=== PATIENT | female | born 1990 | race Caucasian/White ===

== ENCOUNTER 2020-05-14 15:01 | Emergency (ER) | payer BC, OTHER ==
[~2020-05-14] VITALS: Ht 165.1 cm; Wt 65.8 kg
[2020-05-14 15:05] VITALS: BP_SYST 149
--- NOTE | 2020-05-14 15:05 | NUR ---
Patient to ER bed 1 to gown for evaluation. Side rails up. Report given to Jose.
--- NOTE | 2020-05-14 15:10 | NUR ---
PT AAO AND AMBULATORY 2 MONTHS AND HAVING SPOTTING THAT STARTED THIS MORNING. PT DENIES ANY OTHER S/S.
--- NOTE | 2020-05-14 15:20 | NUR ---
ER at bedside examining patient.
[2020-05-14 15:53] LABS: BASOPHILS % (AUTO) 0.3 % (0.0-2.0); EOSINOPHILS # (AUTO) 0.1 K/uL (0.0-0.4); EOSINOPHILS % (AUTO) 1.2 % (0.0-4.0); HEMATOCRIT 40.9 % (36-48); HEMOGLOBIN 13.6 g/dL (12.0-16.0); LYMPHOCYTES # (AUTO) 1.7 K/uL (1.0-5.5); LYMPHOCYTES % (AUTO) 17.2 % (20.5-51.5); MEAN CORPUSCULAR HEMOGLOBIN 29 pg (27-31); MEAN CORPUSCULAR HGB CONC 33 % (32-36); MEAN CORPUSCULAR VOLUME 88 fL (79.0-98.0); MONOCYTES # (AUTO) 0.6 K/uL (0.0-1.0); MONOCYTES % (AUTO) 5.5 % (1.7-9.3); NEUTROPHILS # (AUTO) 7.7 K/uL (1.8-7.7); NEUTROPHILS % (AUTO) 75.8 % (40.0-70.0); PLATELET COUNT (AUTO) 299 K/uL (130-430); RED BLOOD CELL COUNT(AUTO) 4.64 MIL/uL (4.2-6.2); RED CELL DISTRIBUTION WIDTH 12.9 % (9.0-15.0); WHITE BLOOD COUNT (AUTO) 10.1 K/uL (4.8-10.8)
[2020-05-14 15:56] LABS: CALCIUM 9.7 mg/dL (8.4-11.0); CREATININE 0.68 mg/dL (0.55-1.30); POTASSIUM 4.2 mmol/L (3.5-5.1)
--- NOTE | 2020-05-14 16:04 | NUR ---
Pt resting comfortably in [facility] no distress
--- NOTE | 2020-05-14 17:39 | NUR ---
pt has no c/o at this time
--- NOTE | 2020-05-14 17:45 | NUR ---
Patient given written and verbal discharge instructions and verbalizes understanding. ER MD discussed with patient the results and treatment provided. Patient in stable condition. ID arm band removed. No prescriptions given. Patient educated on pain management and to follow up with PMD. Pain Scale 0. Opportunity for questions provided and answered. Medication side effect fact sheet provided.
[2020-05-14 17:47] VITALS: BP_SYST 135
== END 2020-05-14 17:45 | disposition home or self-care (01) ==
LOC: SED 15:01
DX: O20.0 Threatened abortion (principal); O20.9 Hemorrhage in early pregnancy, unspecified; Z3A.01 Less than 8 weeks gestation of pregnancy
CPT/HCPCS: 36415; 76801; 76817; 80048; 81002; 84702-TC; 85025; 86886; 86900; 86901; 99284

== ENCOUNTER 2020-05-15 02:02 | Emergency (ER) | payer BC, OTHER ==
[~2020-05-15] VITALS: Ht 165.1 cm; Wt 68.0 kg
[2020-05-15 02:30] VITALS: BP_SYST 116
[2020-05-15] MEDS ORDERED: NACL 0.9% 1,000 ML IV ONE (05:15)
[2020-05-15 06:44] LABS: BASOPHILS % (AUTO) 0.2 % (0.0-2.0); EOSINOPHILS % (AUTO) 0.1 % (0.0-4.0); HEMATOCRIT 36.2 % (36-48); HEMOGLOBIN 12.1 g/dL (12.0-16.0); LYMPHOCYTES # (AUTO) 0.8 K/uL (1.0-5.5); LYMPHOCYTES % (AUTO) 5.4 % (20.5-51.5); MEAN CORPUSCULAR HEMOGLOBIN 30 pg (27-31); MEAN CORPUSCULAR HGB CONC 34 % (32-36); MEAN CORPUSCULAR VOLUME 88 fL (79.0-98.0); MONOCYTES # (AUTO) 0.6 K/uL (0.0-1.0); MONOCYTES % (AUTO) 4.2 % (1.7-9.3); NEUTROPHILS # (AUTO) 13.2 K/uL (1.8-7.7); NEUTROPHILS % (AUTO) 90.1 % (40.0-70.0); PLATELET COUNT (AUTO) 271 K/uL (130-430); RED BLOOD CELL COUNT(AUTO) 4.09 MIL/uL (4.2-6.2); RED CELL DISTRIBUTION WIDTH 12.6 % (9.0-15.0); WHITE BLOOD COUNT (AUTO) 14.6 K/uL (4.8-10.8)
[2020-05-15] MEDS ORDERED: IBUPROFEN 600 MG TABLET PO ONE (06:45)
[2020-05-15] MEDS ORDERED: IBUPROFEN 600 MG TABLET ONE (06:57)
[2020-05-15] MEDS ORDERED: METHYLERGONOVINE MALEATE 0.2 MG/ML AMP IM ONE (07:15)
[2020-05-15 07:50] LABS: PROTHROMBIN TIME 10.5 SECS (9.5-12.5)
[2020-05-15] MEDS ORDERED: ONDANSETRON HCL 4 MG/2 ML VIAL IVP ONE ×2 (08:15→10:45)
[2020-05-15] MEDS ORDERED: KETOROLAC TROMETHAMINE 30 MG VIAL IVP ONE (10:30)
[2020-05-15 11:34] VITALS: BP_SYST 116
== END 2020-05-15 11:33 | disposition home or self-care (01) ==
LOC: SED 02:02
DX: O00.80 Other ectopic pregnancy without intrauterine pregnancy (principal); Z3A.11 11 weeks gestation of pregnancy
CPT/HCPCS: 36415; 76801; 76817; 85025; 85610; 96361; 96372; 96374; 96375; 96376; 99284; J1885; J2210; J2405; J7030